=== PATIENT | male | born 1980 | race American Indian/Alaskan Native ===

== ENCOUNTER 2016-07-05 01:58 | Emergency (ER) | payer SELFPAY ==
[2016-07-05] MEDS ORDERED: TYLENOL ONE (02:15)
[2016-07-05] MEDS ORDERED: TYLENOL PO ONE (02:23)
[2016-07-05] MEDS ORDERED: CATAPRES ONE (02:32)
[2016-07-05] MEDS ORDERED: CATAPRES PO ONE (02:40)
[2016-07-05 02:58] LABS: Basophils % (Auto) 1.2 % (0.0-1.8); Eosinophils % (Auto) 5.7 % (0.0-4.3); Hematocrit 41.7 % (35.5-45.6); Hemoglobin 13.7 gm/dl (11.8-15.2); Mean Corpuscular HGB Conc 33 % (32-34); Mean Corpuscular Hemoglobin 26 pg (28-32); Mean Corpuscular Volume 78 fl (84-94); Platelet Count 221 K/mm3 (140-440); Red Blood Count 5.36 M/mm3 (3.65-5.03); White Blood Count 10.1 K/mm3 (4.5-11.0)
[2016-07-05 03:35] LABS: Anion Gap 20 mmol/L; Blood Urea Nitrogen 12 mg/dL (9-20); Calcium 9.1 mg/dL (8.4-10.2); Carbon Dioxide 24 mmol/L (22-30); Chloride 100.3 mmol/L (98-107); Glucose 106 mg/dL (75-100); Potassium 3.6 mmol/L (3.6-5.0); Sodium 141 mmol/L (137-145)
[2016-07-05 09:04] VITALS: BP 128/86
--- NOTE | 2016-07-05 09:34 | XRay Report ---
CHEST 2 VIEWS INDICATION: Shortness of breath. COMPARISON: None similar. FINDINGS: PA and lateral chest radiographs demonstrate normal cardiomediastinal silhouette. Mild oblique left perihilar linear atelectasis or scarring. Otherwise unremarkable lungs. Normal bones. CONCLUSION: No significant acute chest process, as described. Thank you for the opportunity to participate in this patient's care.
--- NOTE | 2016-07-05 11:21 | Emergency Department Report ---
ED General Adult HPI - General Chief complaint: Upper Respiratory Infection Stated complaint: COLD SX Source: patient Mode of arrival: Ambulatory Limitations: No Limitations - History of Present Illness Initial comments: The patient complained of a cough occasionally productive of yellow sputum over the past 2 days. He also has a sore throat. He does not complain of difficulty in breathing. He's felt like he's had a fever but has not taken his temperature. Patient is noncompliant with his medication for hypertension. He has no history of any pulmonary infection past or any life-threatening illness or infection. -: Gradual, days(s) Location: mouth (sore throat no chest pain or abdominal pain) Radiation: non-radiation Severity scale (0 -10): 6 Quality: other Consistency: intermittent Improves with: none Worsens with: other (swallowing but no difficulty in swallowing) Associated Symptoms: denies other symptoms, cough - Related Data Previous Rx's Medication Instructions Recorded Last Taken Type Hydrochlorothiazide [Hctz] 12.5 mg PO QDAY #14 capsule 04/05/14 Unknown Rx Acetaminophen/Codeine [Tylenol #3] 1 tab PO Q6H PRN #20 tab 06/19/14 Unknown Rx Ibuprofen [Motrin] 600 mg PO Q8H PRN #40 tablet 06/19/14 Unknown Rx Lisinopril [Zestril TAB] 10 mg PO QDAY #30 tablet 06/19/14 Unknown Rx Azithromycin [Zithromax Z-MASOUD] 250 mg PO DAILY #6 tablet 07/05/16 Unknown Rx amLODIPine [Norvasc] 5 mg PO DAILY #30 tab 07/05/16 Unknown Rx Allergies Allergy/AdvReac Type Severity Reaction Status Date / Time No Known Allergies Allergy Verified 10/14/13 02:20 ED Review of Systems ROS: Stated complaint: COLD SX Other details as noted in HPI Constitutional: denies: chills, fever Eyes: denies: eye pain, eye discharge, vision change ENT: throat pain. denies: ear pain Respiratory: cough. denies: shortness of breath, wheezing Cardiovascular: denies: chest pain, palpitations Endocrine: no symptoms reported Gastrointestinal: denies: abdominal pain, nausea, diarrhea Genitourinary: denies: urgency, dysuria Musculoskeletal: denies: back pain, joint swelling, arthralgia Skin: denies: rash, lesions Neurological: denies: headache, weakness, paresthesias Psychiatric: denies: anxiety, depression Hematological/Lymphatic: denies: easy bleeding, easy bruising ED Past Medical Hx - Past Medical History Previous Medical History?: Yes Hx Hypertension: Yes Additional medical history: narcolepsy - Surgical History Past Surgical History?: No - Social History Smoking Status: Never Smoker Substance Use Type: None - Medications Home Medications: Home Medications Medication Instructions Recorded Confirmed Last Taken Type Hydrochlorothiazide [Hctz] 12.5 mg PO QDAY #14 capsule 04/05/14 Unknown Rx Acetaminophen/Codeine [Tylenol #3] 1 tab PO Q6H PRN #20 tab 06/19/14 Unknown Rx Ibuprofen [Motrin] 600 mg PO Q8H PRN #40 tablet 06/19/14 Unknown Rx Lisinopril [Zestril TAB] 10 mg PO QDAY #30 tablet 06/19/14 Unknown Rx Azithromycin [Zithromax Z-MASOUD] 250 mg PO DAILY #6 tablet 07/05/16 Unknown Rx amLODIPine [Norvasc] 5 mg PO DAILY #30 tab 07/05/16 Unknown Rx ED Physical Exam - General Limitations: No Limitations General appearance: alert, in no apparent distress - Head Head exam: Present: atraumatic, normocephalic - Eye Eye exam: Present: normal appearance, PERRL, EOMI. Absent: scleral icterus - ENT ENT exam: Present: mucous membranes moist, other (erythema anterior pillae no abscess uvula midline and no exudate) - Neck Neck exam: Present: normal inspection - Respiratory Respiratory exam: Present: normal lung sounds bilaterally. Absent: respiratory distress - Cardiovascular Cardiovascular Exam: Present: regular rate, normal rhythm. Absent: systolic murmur, diastolic murmur, rubs, gallop - GI/Abdominal GI/Abdominal exam: Present: soft, normal bowel sounds. Absent: distended, tenderness, guarding, rebound, rigid - Rectal Rectal exam: Present: deferred - Extremities Exam Extremities exam: Present: normal inspection - Back Exam Back exam: Present: normal inspection - Neurological Exam Neurological exam: Present: alert, oriented X3, CN II-XII intact. Absent: motor sensory deficit - Psychiatric Psychiatric exam: Present: normal affect, normal mood - Skin Skin exam: Present: warm, dry, intact, normal color. Absent: rash ED Course Vital Signs 07/05/16 07/05/1617 02:05 02:41 06:27 Temperature 98.8 F 98.6 F Pulse Rate 84 84 73 Respiratory 18 18 Rate Blood Pressure 161/124 136/90 Blood Pressure [Left] Blood Pressure 161/124 [Right] O2 Sat by Pulse 100 99 Oximetry 07/05/16 09:02 Temperature 97.9 F Pulse Rate 75 Respiratory 18 Rate Blood Pressure Blood Pressure 128/86 [Left] Blood Pressure [Right] O2 Sat by Pulse 98 Oximetry - Reevaluation(s) Reevaluation #1: Counseled patient regarding the need for chronic care of his hypertension. 07/05/16 13:53 ED Medical Decision Making - Lab Data Result diagrams: 07/05/16 02:45 07/05/16 02:45 Laboratory Results - last 24 hr 07/05/16 07/05/16 02:45 02:45 WBC 10.1 RBC 5.36 H Hgb 13.7 Hct 41.7 MCV 78 L MCH 26 L MCHC 33 RDW 15.0 Plt Count 221 Lymph % (Auto) 17.3 [place] % (Auto) 10.4 H Eos % (Auto) 5.7 H Baso % (Auto) 1.2 Lymph # 1.7 [place] # 1.0 H Eos # 0.6 H Baso # 0.1 Seg Neutrophils % 65.4 Seg Neutrophils # 6.6 Sodium 141 Potassium 3.6 Chloride 100.3 Carbon Dioxide 24 Anion Gap 20 BUN 12 Creatinine 1.2 Estimated GFR > 60 BUN/Creatinine Ratio 10.00 Glucose 106 H Calcium 9.1 Troponin T < 0.010 Critical care attestation.: If time is entered above; I have spent that time in minutes in the direct care of this critically ill patient, excluding procedure time. ED Disposition Clinical Impression: Hypertension Qualifiers: Hypertension type: essential hypertension Qualified Code(s): I10 - Essential ( primary) hypertension Acute bronchitis Qualifiers: Bronchitis organism: unspecified organism Qualified Code(s): J20.9 - Acute bronchitis, unspecified Pharyngitis Qualifiers: Pharyngitis/tonsillitis etiology: unspecified etiology Qualified Code(s): J02.9 - Acute pharyngitis, unspecified Disposition: DISCHARGED TO HOME OR SELFCARE Is pt being admited?: No Does the pt Need Aspirin: No Condition: Stable Instructions: Pharyngitis (ED), Acute Bronchitis (ED), Hypertension (ED) Additional Instructions: Follow up with medical stenographer. Return any acute change or problem. Prescriptions: amLODIPine [Norvasc] 5 mg PO DAILY #30 tab Azithromycin [Zithromax Z-MASOUD] 250 mg PO DAILY #6 tablet Referrals: [facility] [Provider Group] - 3-5 Days [facility] [Primary Care Provider] - 3-5 Days Forms: Work/School Release Form(ED) Time of Disposition: 11:53
== END 2016-07-05 11:33 | disposition home or self-care (01) ==
LOC: ED 01:58
DX: I10 Essential (primary) hypertension (principal); J20.9 Acute bronchitis, unspecified; J02.9 Acute pharyngitis, unspecified; G47.419 Narcolepsy without cataplexy
CPT/HCPCS: 36415; 71020; 80048; 84484; 85025; 87116; 87430; 93005; 93010

== ENCOUNTER 2016-11-28 23:45 | Emergency (ER) | payer SELFPAY ==
[2016-11-29 00:20] VITALS: BP 161/108
[2016-11-29] MEDS ORDERED: TYLENOL PO ONE (00:44)
[2016-11-29 01:38] LABS: Anion Gap 20 mmol/L; Blood Urea Nitrogen 18 mg/dL (9-20); Calcium 9.5 mg/dL (8.4-10.2); Carbon Dioxide 24 mmol/L (22-30); Chloride 98.2 mmol/L (98-107); Glucose 107 mg/dL (75-100); Potassium 4.1 mmol/L (3.6-5.0); Sodium 138 mmol/L (137-145)
[2016-11-29 02:00] LABS: Bilirubin,Urine NEG (Negative); Blood,Urine NEG (Negative); Ketones,Urine NEG (Negative); Leukocyte Esterase,Urine NEG (Negative); Mucus,Urine FEW /HPF; Nitrite,Urine NEG (Negative)
[2016-11-29 02:00] LABS: Basophils % (Auto) 0.3 % (0.0-1.8); Eosinophils % (Auto) 0.3 % (0.0-4.3); Mean Corpuscular HGB Conc 34 % (32-34); Mean Corpuscular Volume 76 fl (84-94); Platelet Count 202 K/mm3 (140-440); Red Blood Count 5.39 M/mm3 (3.65-5.03); Red Cell Distribution Width 15.4 % (13.2-15.2); White Blood Count 19.9 K/mm3 (4.5-11.0)
[2016-11-29 02:13] LABS: Mean Corpuscular Hemoglobin 26 pg (28-32)
== END 2016-11-29 00:58 | disposition left against medical advice (07) ==
LOC: ED 23:45
DX: I10 Essential (primary) hypertension (principal); Z53.21 Procedure and treatment not carried out due to patient leaving prior to being seen by health care provider
CPT/HCPCS: 36415; 80048; 81001; 85025